=== PATIENT | female | born 1990 | race Caucasian/White ===

== ENCOUNTER 2020-01-04 07:46 | Emergency (ER) | payer OTHER ==
[2020-01-04] MEDS ORDERED: NORMAL SALINE 1000 ML 1,000 ML IV ONE (09:37)
--- NOTE | 2020-01-04 09:56 | ER Document Report ---
ED General - General Chief Complaint: Rectal Foreign Body Stated Complaint: FOREIGN OBJECT/RECTUM Time Seen by Provider: 01/04/20 09:20 - HPI Notes: Chief complaint: Rectal foreign body HPI: Previously healthy 29-year-old female said she had been drinking last night and around 11 PM was using a sex toy which became lodged in her rectum. This is persistent she has been unable to remove it on her own. She denies any rectal pain or bleeding. She denies any abdominal pain, nausea, vomiting, fever or chills. She ate a full meal at home about 2 hours ago. She is otherwise healthy taking no regular medications. Last menses 3 weeks ago. No contraception. - Related Data Allergies/Adverse Reactions: No Known Allergies Allergy (Verified 01/04/20 07:56) Past Medical History - General Information source: Patient - Social History Smoking Status: Never Smoker Chew tobacco use (# tins/day): No Frequency of alcohol use: Rare Drug Abuse: None Family History: Reviewed & Not Pertinent Patient has homicidal ideation: No Review of Systems - Review of Systems Notes: Constitutional: Negative for fever. HENT: Negative for sore throat. Eyes: Negative for visual changes. Cardiovascular: Negative for chest pain. Respiratory: Negative for shortness of breath. Gastrointestinal: Negative for abdominal pain, vomiting or diarrhea. Genitourinary: Negative for dysuria. Musculoskeletal: Negative for back pain. Skin: Negative for rash. Neurological: Negative for headaches, weakness or numbness. 10 point ROS negative except as marked above and in HPI. Physical Exam - Vital signs Vitals: Temp Pulse Resp BP Pulse Ox 98.3 F 72 16 121/69 100 01/04/20 07:51 01/04/20 07:51 01/04/20 07:51 01/04/20 07:51 01/04/20 07:51 - Notes Notes: GENERAL: Well-developed well-nourished appearing in no acute distress. SKIN: Good turgor no rashes. HEAD: Normocephalic atraumatic. EYES: PERRLA. EOMI. Conjunctivae and sclerae clear. EARS: CANALS AND TMS CLEAR. NOSE: CLEAR. MOUTH: Moist mucosa. Good dentition. No stridor or edema. No drooling. NECK: Supple. No masses or thyromegaly. No adenopathy. Carotids 2+ without bruits. No JVD. BACK: Symmetrical without tenderness. CHEST: Respirations unlabored. Breath sounds clear and symmetrical. HEART: Regular rhythm. No murmur gallop or rub. ABDOMEN: Soft nontender without masses, organomegaly or rebound. Bowel sounds normally active. No bruits. GENITALIA: Deferred. EXTREMITIES: No edema. No calf tenderness. Cap refill less than 1.5 seconds. Dorsalis pedis and posterior tibial pulses 3+ and symmetrical. NEUROLOGICAL: GCS 15. Alert and oriented x3. Normal gait. Fluent speech. Cranial nerves II through XII intact. Sensorimotor and cerebellar normal. Normal tone. PSYCHIATRIC: Appropriate affect. Course - Re-evaluation Re-evalutation: 01/04/20 09:55 Initial plan was to keep the patient n.p.o., start IV fluids and get a KUB prior to attempting a rectal exam. Shortly after I left the room the patient went to the toilet to urinate and when she did so the foreign body came out spontaneously. She is totally asymptomatic at this point and will be discharged home. I cautioned her regarding practices of inserting foreign objects into the body. - Vital Signs Vital signs: Temp Pulse Resp BP Pulse Ox 98.3 F 72 16 121/69 100 01/04/20 07:52 01/04/20 07:51 01/04/20 07:51 01/04/20 07:51 01/04/20 07:51 Discharge - Discharge Clinical Impression: Rectal foreign body Condition: Stable Disposition: HOME, SELF-CARE Additional Instructions: Return here as needed for new or worsening symptoms: Pain that is worsening or unimproved Uncontrolled vomiting High fever or shaking chills Overall worsening Follow-up with your primary care physician. Referrals: [facility] [Provider Group] - Follow up as needed
[2020-01-04 10:20] VITALS: BP 118/62
== END 2020-01-04 10:19 | disposition home or self-care (01) ==
LOC: ER 07:46
DX: T18.5XXA Foreign body in anus and rectum, initial encounter (principal); X58.XXXA Exposure to other specified factors, initial encounter
CPT/HCPCS: 99283